=== PATIENT | male | born 2000 | race Caucasian/White ===

== ENCOUNTER 2023-12-07 06:55 | Day surgery (SDC) | payer BC ==
[2023-12-07] MEDS: Lactated Ringers 1,000 ML IV SCH (07:10)
[2023-12-07] MEDS ORDERED: Lidocaine 4% 5 ML Amp ONE (08:58)
[2023-12-07] MEDS ORDERED: Propofol 200 MG/20 ML SDV ONE (08:58)
[2023-12-07] MEDS ORDERED: Midazolam 1 MG/ML 2 ML SDV ONE (08:58)
[2023-12-07] MEDS ORDERED: fentaNYL 100 MCG/2 ML SDV ONE (08:58)
[2023-12-07] MEDS ORDERED: Lidocaine 2% 5 ML SDV ONE (09:01)
== END 2023-12-07 10:02 | disposition home or self-care (01) ==
LOC: VM.SDS 06:55
PROVIDERS: ATTEND Student in an Organized Health Care Education/Training Program
DX: K29.50 Unspecified chronic gastritis without bleeding (principal); K31.89 Other diseases of stomach and duodenum; R68.81 Early satiety; Z88.8 Allergy status to other drugs, medicaments and biological substances
CPT/HCPCS: 00731; 43239; J2250; J2704; J3010; J7120; J3490